=== PATIENT | male | born 1940 | race Caucasian/White ===

== ENCOUNTER 2017-05-29 09:53 | Emergency (ER) | payer OTHER ==
--- NOTE | 2017-05-29 10:11 | EDPHY ---
H & P Stated Complaint: rectal bleeding with constipation Time Seen by Provider: 05/29/17 10:05 - Personal History Current Tetanus/Diphtheria Vaccine: Unsure - Medical/Surgical History Hx Asthma: No Hx Chronic Respiratory Disease: No Hx Diabetes: No Hx Cardiac Disease: Yes Hx Renal Disease: No Hx Cirrhosis: No Hx Alcoholism: No Hx HIV/AIDS: No Hx Splenectomy or Spleen Trauma: No Other PMH: PSH: CABG; cardiac stent;. PMH: CAD; HTN ; L carotid stenosis - Social History Smoking Status: Former smoker Constitutional: Initial Vital Signs Temperature (C) 36.7 C 05/29/17 09:57 Heart Rate 76 05/29/17 09:57 Respiratory Rate 17 05/29/17 09:57 Blood Pressure 155/85 H 05/29/17 09:57 O2 Sat (%) 98 05/29/17 09:57 O2 Delivery Mode Room Air Allergies/Adverse Reactions: Sulfa (Sulfonamide Antibiotics) Allergy (Intermediate, Verified 05/29/17 09:54) hallucinating Home Medications: Medication Instructions Recorded Aspirin [Aspirin 81mg (OTC)] 81 mg PO DAILY 07/02/12 Cholecalciferol Vit D3 [Vitamin D3 1,000 units PO DAILY 07/02/12 1000 units (OTC)] Herbals/Supplements -Info Only 1 tab PO AD 07/02/12 Lisinopril [Zestril 10 mg (RX)] 10 mg PO DAILY 07/02/12 Multivitamins [Multivitamin (OTC)] 1 tab PO DAILY 07/02/12 Red Yeast Rice Extract [Red Yeast 600 mg PO DAILY 07/02/12 Rice] [employer] 6 - 8 tab PO DAILY 07/02/12 Vitamin B Complex [Vitamin B 1 tab PO DAILY 07/02/12 Complex (OTC)] Medical Decision Making - Diagnostics Imaging Results: Imaging Impressions Abdomen CT 05/29/17 10:33 Impression: 1. Constipation and mild diverticulosis of the sigmoid and ascending colon. No acute diverticulitis. 2. No intraabdominal mass, lymphadenopathy, or localized inflammatory process. 3. Normal caliber atherosclerotic aorta. Findings discussed with Emergency Department physician, Bahman Lowe M.D. on May 29, 2017 at 11:18 a.m. Imaging: Discussed imaging studies w/ call center rn Radiologist ED Course/Re-evaluation: CHIEF COMPLAINT: Rectal bleeding. HISTORY OF PRESENT ILLNESS: The patient is a 76-year-old male who presents with rectal bleeding that began at 0300 this morning. He noticed dark crusty blood that came out of his rectum during urination. He does report being a bit constipated the past few days. He has had no other episodes since then. He has no history of similar symptoms. He takes a daily baby aspirin. He denies dizziness, lightheadedness, vomiting, diarrhea, or other complaints at this time. REVIEW OF SYSTEMS: A 10 point review of systems was performed and is negative with the exception of the elements mentioned in the history of present illness. PHYSICAL EXAM: HR, BP, O2 Sat, RR. Temp noted General Appearance: Alert, well hydrated, appropriate, and non-toxic appearing. Head: Atraumatic without scalp tenderness or obvious injury Eyes: Pupils equal, round, reactive to light and accommodation, EOMI, no trauma , no injection. Ears: Clear bilaterally, no perforation, normal landmarks Nose: Atraumatic, no rhinorrhea, clear. Throat: There is no erythema or exudates, no lesions, normal tonsils, mucus membranes moist. Neck: Supple, 2+ carotid upstroke, nontender, no lymphadenopathy. Respiratory: No retractions, no distress, no wheezes, and no accessory muscle use. Lungs are clear to auscultation bilaterally. Cardiovascular: Regular rate and rhythm, no murmurs, rubs, or gallops. Bilateral carotid, radial, dorsalis pedis, and posterior tibial pulses intact. Good capillary refill all extremities. Gastrointestinal: Abdomen is soft, nontender, non-distended, no masses, no rebound, no guarding, no peritoneal signs. Musculoskeletal: Normal active ROM of all extremities, atraumatic. Neurological: Alert, appropriate, and interactive. The patient has normal DTRs and non-focal cranial nerves, motor, sensory, and cerebellar exam. Skin: No rashes, good turgor, no nodules on palpation. Past medical history: CAD, HTN L carotid stenosis Past surgical history: Cardiac stent, CABG. Family history: Non-contributory. Social history: Hindu. DIAGNOSTICS/PROCEDURES/CRITICAL CARE TIME: Study: CT of the abdomen/pelvis. Indication: Rectal bleeding. Results: No acute process. The study was read by the radiologist, Dr. Huston. I viewed the images myself on the PACS system. DIFFERENTIAL DIAGNOSIS: The differential diagnosis for the patient's lower GI bleeding included but was not limited to diverticulosis, tumor, AVM, hemorrhoid, and upper GI Bleed. MEDICAL DECISION MAKIN-year-old male presents after one episode of dark rectal bleeding during urination this morning. He has no associated symptoms at this time. I performed a rectal exam. There is no stool in the vault. An IV was established. We will check basic labwork. I reviewed the patient's laboratory studies. H&H normal. Other studies negative for acute abnormalities. Abdominal CT ordered. 1116: CT results conveyed to me by Dr. Huston, radiology, as negative, small amount of constipation. 1127: Consulted with Dr. Nickerson, GI. He will scope the patient tomorrow morning as an outpatient. - Data Points Laboratory Results: Laboratory Results 05/29/17 10:20 05/29/17 10:20 05/29/17 05/29/17 05/29/17 10:30 10:20 10:20 WBC RBC Hgb POC Hgb 15.0 gm/dL gm/dL (13.7-17.5) Hct POC Hct 44 % % (40-51) MCV MCH MCHC RDW Plt Count MPV Neut % (Auto) Lymph % (Auto) Cambria % (Auto) Eos % (Auto) Baso % (Auto) Nucleat RBC Rel Count Absolute Neuts (auto) Absolute Lymphs (auto) Absolute Monos (auto) Absolute Eos (auto) Absolute Basos (auto) Absolute Nucleated RBC Immature Gran % Immature Gran # PT 13.5 SEC SEC (12.0-15.0) INR 1.04 (0.83-1.16) APTT 29.7 SEC SEC (23.0-38.0) POC Sodium 142 mEq/L mEq/L (134-144) Sodium 144 mEq/L mEq/L (134-144) POC Potassium 4.4 mEq/L mEq/L (3.3-5.0) Potassium 4.7 mEq/L mEq/L (3.5-5.2) POC Chloride 105 mEq/L mEq/L (97-110) Chloride 108 mEq/L mEq/L (97-110) Carbon Dioxide 23 mEq/l mEq/l (22-31) Anion Gap 13 mEq/L mEq/L (8-16) POC BUN 22 mg/dL mg/dL (7-23) BUN 22 mg/dL mg/dL (7-23) Creatinine 1.2 mg/dL mg/dL (0.7-1.3) POC Creatinine 1.2 mg/dL mg/dL (0.7-1.3) Estimated GFR 59 Glucose 71 mg/dL mg/dL (70-100) POC Glucose 89 mg/dL mg/dL (70-100) Calcium 9.5 mg/dL mg/dL (8.5-10.4) 05/29/17 10:20 WBC 6.85 10^3/uL 10^3/uL (3.80-9.50) RBC 4.95 10^6/uL 10^6/uL (4.40-6.38) Hgb 15.0 g/dL g/dL (13.7-17.5) POC Hgb Hct 45.0 % % (40.0-51.0) POC Hct MCV 90.9 fL fL (81.5-99.8) MCH 30.3 pg pg (27.9-34.1) MCHC 33.3 g/dL g/dL (32.4-36.7) RDW 13.5 % % (11.5-15.2) Plt Count 254 10^3/uL 10^3/uL (150-400) MPV 10.1 fL fL (8.7-11.7) Neut % (Auto) 76.1 % H % (39.3-74.2) Lymph % (Auto) 13.3 % L % (15.0-45.0) Cambria % (Auto) 8.0 % % (4.5-13.0) Eos % (Auto) 1.6 % % (0.6-7.6) Baso % (Auto) 0.6 % % (0.3-1.7) Nucleat RBC Rel Count 0.0 % % (0.0-0.2) Absolute Neuts (auto) 5.21 10^3/uL 10^3/uL (1.70-6.50) Absolute Lymphs (auto) 0.91 10^3/uL L 10^3/uL (1.00-3.00) Absolute Monos (auto) 0.55 10^3/uL 10^3/uL (0.30-0.80) Absolute Eos (auto) 0.11 10^3/uL 10^3/uL (0.03-0.40) Absolute Basos (auto) 0.04 10^3/uL 10^3/uL (0.02-0.10) Absolute Nucleated RBC 0.00 10^3/uL 10^3/uL (0-0.01) Immature Gran % 0.4 % % (0.0-1.1) Immature Gran # 0.03 10^3/uL 10^3/uL (0.00-0.10) PT INR APTT POC Sodium Sodium POC Potassium Potassium POC Chloride Chloride Carbon Dioxide Anion Gap POC BUN BUN Creatinine POC Creatinine Estimated GFR Glucose POC Glucose Calcium Point of Care Test Results: 05/29/17 10:30 POC Sodium 142 POC Potassium 4.4 POC Chloride 105 POC BUN 22 POC Creatinine 1.2 POC Glucose 89 Departure - Departure Disposition: Home, Routine, Self-Care Clinical Impression: Rectal bleeding Constipation Qualifiers: Constipation type: unspecified constipation type Qualified Code(s): K59.00 - Constipation, unspecified Condition: Good Instructions: Constipation (ED), Rectal Bleeding (ED) Additional Instructions: Call Dr. Nickerson, gastroenterology, today to set up an appointment for tomorrow morning. He is expecting you. Return to the ED for lightheadedness, dizziness, worsening bleeding, or any other serious worsening of condition. Referrals: See Nickerson MD [Medical Doctor] - As per Instructions Report Scribed for: Bahman Lowe Report Scribed by: Patel Hussein Date of Report: 05/29/17 Time of Report: 10:33
[2017-05-29 10:38] LABS: % IMMATURE GRANULYOCYTES 0.4 % (0.0-1.1); ABSOLUTE IMMATURE GRANULOCYTES 0.03 10^3/uL (0.00-0.10); ADD DIFF? NO; ADD MORPH? NO; ADD SCAN? NO; ATYPICAL LYMPHOCYTE FLAG 0 (0-99); FRAGMENT RBC FLAG 0 (0-99); LEFT SHIFT FLG 0 (0-99); LIPEMIA HEMOLYSIS FLAG 80 (0-99); MEAN CELL HEMOGLOBIN 30.3 pg (27.9-34.1); MEAN CELL HEMOGLOBIN CONCENTR. 33.3 g/dL (32.4-36.7); MEAN CELL VOLUME 90.9 fL (81.5-99.8); MEAN PLATELET VOLUME 10.1 fL (8.7-11.7); PLATELET CLUMPS FLAG 0 (0-99); PLATELET COUNT 254 10^3/uL (150-400); RED BLOOD CELL COUNT 4.95 10^6/uL (4.40-6.38); RED CELL DISTRIBUTION WIDTH 13.5 % (11.5-15.2)
[2017-05-29] MEDS ORDERED: IOPAMIDOL (ISOVUE-300) 100 ML BTL ONE (10:42)
[2017-05-29 10:48] LABS: INR 1.04 (0.83-1.16); PROTIME(PATIENT) 13.5 SEC (12.0-15.0)
[2017-05-29 10:49] LABS: APTT 29.7 SEC (23.0-38.0)
[2017-05-29 10:52] LABS: ANION GAP 13 mEq/L (8-16); CALCIUM 9.5 mg/dL (8.5-10.4); CARBON DIOXIDE 23 mEq/l (22-31); CHLORIDE 108 mEq/L (97-110); CREATININE 1.2 mg/dL (0.7-1.3); GLOMERULAR FILTRATION RATE 59; GLUCOSE 71 mg/dL (70-100); POTASSIUM 4.7 mEq/L (3.5-5.2); SODIUM 144 mEq/L (134-144)
[2017-05-29 11:38] VITALS: BP 151/82; PULSE 76; RESP 16; TEMP 97.7; O2SAT 98
== END 2017-05-29 11:38 | disposition home or self-care (01) ==
DX: K62.5 Hemorrhage of anus and rectum (principal); K59.00 Constipation, unspecified; I25.810 Atherosclerosis of coronary artery bypass graft(s) without angina pectoris; I10 Essential (primary) hypertension; Z87.891 Personal history of nicotine dependence; Z79.82 Long term (current) use of aspirin; Z95.5 Presence of coronary angioplasty implant and graft
CPT/HCPCS: 74177; 99285; Q9967; 82947-QW

== ENCOUNTER → 2018-02-10 | Outpatient (CLI) | payer OTHER | LOC: FIMAGING 09:25 | PROVIDERS: ATTEND Family Medicine | DX: E78.5 Hyperlipidemia, unspecified (principal); I10 Essential (primary) hypertension; R05 Cough ==

== ENCOUNTER 2018-09-14 10:15 | Observation (INO) | payer OTHER ==
[2018-09-10 11:05] LABS: PLATELET COUNT 258 10^3/uL (150-400)
--- NOTE | 2018-09-13 15:53 | GHP ---
DATE OF ADMISSION: 09/14/2018 DATE OF SURGERY: 09/14/2018. HISTORY: Catarino is a 78-year-old male who presents with chronic problems with his right knee. His knee is painful, he has swelling and stiffness, limitations of activities. He has tried previous injecti ons, he has used an greenhouse instructor brace and done exercises. He continues to be an active individual, he i s becoming significantly limited by his knee. His x-ray shows severe osteoarthritis, predominantly m edial compartment, that is bone to bone with bony spurs, subchondral sclerosis and varus malalignment . A right total knee arthroplasty is planned. PAST MEDICAL HISTORY: Remarkable for coronary artery disease, he has been managed by Dr. Kenrick lee. He had a bypass surgery in 1998. He has also had a stent placed in [address] Watkins. He h as been cleared from the cardiac standpoint. He has hypertension. MEDICATIONS: He is using lisinopril 40 mg p.o. daily, and vitamins ALLERGIES: Sulfa. SOCIAL HISTORY: He is a nonsmoker. REVIEW OF SYSTEMS: Positive for his cardiac history as above. PHYSICAL EXAM: GENERAL: Catarino is a well-developed, well-nourished male in no apparent distress. HEAD AND NECK: Normocephalic, atraumatic. CHEST: Clear. CARDIOVASCULAR: Regular rate and rhythm. ABD OMEN: Soft. NEUROLOGICAL: He is alert and orient x3. EXTREMITIES: Examination of the right knee s hows varus malalignment, a trace effusion. He has about a 5 degree flexion contracture and flexes to 120 degrees. NEUROVASCULAR: Appears intact. SKIN: Intact. IMPRESSION: Right knee osteoarthritis. PLAN: Right total knee arthroplasty. Benefits and risks of surgery have been reviewed. He understa nds that the risks include infection, damage to blood vessel or nerve, failure or loosening of the co mponent, and need for revision. He has signed his consent form and he wishes to proceed. /[id number]/MODL
[~2018-09-14 10:15] MED LIST: ROPIVACAINE 0.2% 80 MG, EPINEPHrine 0.2 MG, KETOROLAC TROMETHAMINE 30 MG in SYRINGE 0 ML IU ONE; TRANEXAMIC ACID 1,000 MG in NS 100 ML IV ONE
[2018-09-14] MEDS ORDERED: FAMOTIDINE 20 MG TAB PO ONE (10:28)
[2018-09-14] MEDS ORDERED: DEXAMETHASONE 4 MG/ML VIAL IVP ONE (10:28)
[2018-09-14] MEDS ORDERED: ceFAZolin 2 GM/DEXTROSE 100 ML IV ONE (10:28)
[2018-09-14] MEDS ORDERED: GABAPENTIN 300 MG CAP PO ONE (10:28)
[2018-09-14] MEDS ORDERED: ACETAMINOPHEN 325 MG TAB PO ONE (10:28)
[2018-09-14] MEDS ORDERED: ONDANSETRON 4 MG/2 ML VIAL IVP ONE (10:28)
[2018-09-14] MEDS ORDERED: LIDOCAINE 1% 2 ML INJ ID PRN (10:31)
[2018-09-14] MEDS ORDERED: LR 1,000 ML IV ONE (10:31)
[2018-09-14] MEDS ORDERED: ceFAZolin 1 GM/5 ML SYR ONE (10:43)
[2018-09-14] MEDS ORDERED: fentaNYL 100 MCG/2 ML INJ ONE ×2 (12:56→15:54)
[2018-09-14] MEDS ORDERED: LIDOCAINE 2% 100 MG/5 ML SYR ONE (12:56)
[2018-09-14] MEDS ORDERED: PROPOFOL/EMULSION 500 MG/50 ML BOTTLE IV ONE (12:56)
[2018-09-14] MEDS ORDERED: PROPOFOL 200 MG/20 ML VIAL ONE (12:56)
[2018-09-14] MEDS ORDERED: BUPIVACAINE/DEXTROSE 7.5MG/ML 2 ML SPINAL AMP SP ONE (12:56)
--- NOTE | 2018-09-14 13:32 | PDHPUP ---
History & Physical Update H&P update statement: This history and physical update is based on an assessment of the patient which was completed after admission or registration (within 24 hours), but prior to the surgery/procedure. no change H&P update: changes noted (no change)
--- NOTE | 2018-09-14 13:36 | POSTANESTH ---
Post Anesthetic Evaluation Cardiovascular Status: Similar to Pre-Op Cond, Tx Hyper/Hypo-tension Respiratory Status: Normal, Stable Level of Consciousness/Mental Status: Can Participate in Eval, Alert and Oriented Pain Control: Adequate, Prn Tx Ordered Nausea/Vomiting Control: Adequate, Prn Tx Ordered Complications Possibly Related to Anesthesia: None Noted
--- NOTE | 2018-09-14 13:38 | PDANEPAE ---
ANE History of Present Illness 78 yo male with knee OA for TKA. ANE Past Medical History - Cardiovascular History Hx Hypertension: Yes Hx Arrhythmias: No Hx Chest Pain: No Hx Coronary Artery / Peripheral Vascular Disease: Yes Hx CHF / Valvular Disease: No Hx Palpitations: No Cardiovascular History Comment: s/p 4 v CABG 20 yrs ago, stent 18 yr ago - Pulmonary History Hx COPD: No Hx Asthma/Reactive Airway Disease: No Hx Recent Upper Respiratory Infection: No Hx Oxygen in Use at Home: No Hx Sleep Apnea: No Sleep Apnea Screening Result - Last Documented: Positive Pulmonary History Comment: SATNAM triggers only - Neurologic History Hx Cerebrovascular Accident: No Hx Seizures: No Hx Dementia: No - Endocrine History Hx Diabetes: No Hypothyroid: No Hyperthyroid: No Obesity: no - Renal History Hx Renal Disorders: No - Liver History Hx Hepatic Disorders: No - Neurological & Psychiatric Hx Hx Neurological and Psychiatric Disorders: No - Cancer History Hx Cancer: No - Congenital Disorder History Hx Congenital Disorders: No - GI History Hx Gastrointestinal Disorders: No Gastrointestinal History Comment: polyp removal - Other Health History Other Health History: bilateral hearing aids. upper denture, lower partial. bialteral rotator cuff pain - Chronic Pain History Chronic Pain: Yes (bilateral rotator cuffs) - Surgical History Prior Surgeries: CABG, 1998. 2 stents, 2000 ANE Review of Systems Review of Systems: - Exercise capacity METS (RN): 4 METS - Systems Constitutional: Reports: no symptoms Cardiac: Reports: no symptoms Respiratory: Reports: no symptoms ANE Patient History - Allergies Allergies/Adverse Reactions: Sulfa (Sulfonamide Antibiotics) Allergy (Verified 09/09/18 12:36) can't recall reaction but thinks it was itching - Home Medications Home Medications: Lisinopril [Zestril 10 mg (RX)] 40 mg PO HS 07/02/12 [Last Taken 09/13/18 21:00] - NPO status NPO Since - Liquids (Date): 09/14/18 NPO Since - Liquids (Time): 08:45 NPO Since - Solids (Date): 09/13/18 NPO Since - Solids (Time): 20:00 - Anes Hx Anes Hx: no prior problems - Smoking Hx Smoking Status: Former smoker - Family Anes Hx Family Anes Hx: neg - N/A Family Hx Anesthesia Complications: none ANE Labs/Vital Signs - Labs Result Diagrams: 09/10/18 10:41 - Vital Signs Blood Pressure: 194/90 Heart Rate: 76 Respiratory Rate: 15 O2 Sat (%): 97 Height: 180.34 cm Weight: 72.575 kg ANE Physical Exam - Airway Neck exam: FROM Mallampati Score: Class 2 Mouth exam: normal dental/mouth exam - Pulmonary Pulmonary: clear to auscultation - Cardiovascular Cardiovascular: regular rate and rhythym - ASA Status ASA Status: II ANE Anesthesia Plan Anesthesia Plan: spinal Regional Anesthesia: adductor canal FNB, POPC/PSR
[2018-09-14] MEDS ORDERED: LIDOCAINE 2% 5 ML SDV ONE (13:43)
[2018-09-14] MEDS ORDERED: DEXAMETHASONE 4 MG/ML VIAL ONE (14:58)
[2018-09-14] MEDS ORDERED: ROPIVACAINE HCL 150 MG/30 ML INJ ONE (15:10)
[2018-09-14] MEDS ORDERED: POVIDONE-IODINE 20 ML in SODIUM CL IRRIG SOLUTION 500 ML IRR ONE (15:30)
[2018-09-14] MEDS ORDERED: LR 500 ML IV PRN (15:34)
[2018-09-14] MEDS ORDERED: DIAZEPAM 5 MG/ML 1 ML SYR IVP PRN (15:34)
[2018-09-14] MEDS ORDERED: NALOXONE HCL 0.4 MG/ML INJ IVP PRN (15:34)
[2018-09-14] MEDS ORDERED: ENALAPRILAT DIHYDRATE 1.25 MG/ML VIAL IVP PRN (15:34)
[2018-09-14] MEDS ORDERED: oxyCODONE IR 5 MG TAB PO PRN ×2 (15:34→15:50)
[2018-09-14] MEDS ORDERED: ONDANSETRON 4 MG/2 ML VIAL IVP PRN ×2 (15:34→15:50)
[2018-09-14] MEDS ORDERED: ALBUTEROL 3 ML DEYVIAL IH PRN (15:34)
[2018-09-14] MEDS ORDERED: ACETAMINOPHEN 500 MG TAB PO PRN (15:34)
[2018-09-14] MEDS ORDERED: LABETALOL HCL 5 MG/ML 20 ML MDV ONE (15:39)
[2018-09-14] MEDS ORDERED: METOCLOPRAMIDE 10 MG/2 ML VIAL IVP PRN (15:50)
[2018-09-14] MEDS ORDERED: TEMAZEPAM 15 MG CAP PO PRN (15:50)
[2018-09-14] MEDS ORDERED: MAGNESIUM HYDROXIDE 30 ML UDCUP PO PRN (15:50)
[2018-09-14] MEDS ORDERED: DIPHENOXYLATE/ATROPINE LOMOTIL 1 TAB PO PRN (15:50)
[2018-09-14] MEDS ORDERED: BISACODYL 10 MG SUPP PR PRN (15:50)
[2018-09-14] MEDS ORDERED: diphenhydrAMINE 25 MG CAP PO PRN (15:50)
[2018-09-14] MEDS ORDERED: PROMETHAZINE HCL 25 MG SUPPR PR PRN (15:50)
[2018-09-14] MEDS ORDERED: LACTULOSE 20 GM/30 ML UDCUP PO PRN (15:50)
[2018-09-14] MEDS ORDERED: PROMETHAZINE HCL 25 MG/ML INJ IVP PRN (15:50)
[2018-09-14] MEDS ORDERED: POLYETHYLENE GLYCOL 3350 17 GM PKT PO PRN (15:50)
[2018-09-14] MEDS ORDERED: CYCLOBENZAPRINE 10 MG TAB PO PRN (15:50)
[2018-09-14] MEDS ORDERED: ONDANSETRON DISINTEGRATING 4 MG TAB PO PRN (15:50)
[2018-09-14] MEDS: fentaNYL 100 MCG/2 ML INJ IVP PRN ×2 (15:59→16:10)
[2018-09-14] MEDS ORDERED: LR 1,000 ML IV SCH (16:00)
[2018-09-14] MEDS ORDERED: TRANEXAMIC ACID 1,000 MG in NS 100 ML IV ONE (16:23)
--- NOTE | 2018-09-14 16:29 | GOP ---
DATE OF OPERATION: 09/14/2018 SURGEON: Dionisio Crews MD CORE WINDER MACHINE OPERATOR: ALEXANDER Muse, MORIS ANESTHESIOLOGIST: JOSH Ny PREOPERATIVE DIAGNOSIS: Right knee osteoarthritis. POSTOPERATIVE DIAGNOSIS: Right knee osteoarthritis. PROCEDURE PERFORMED: Right total knee arthroplasty. FINDINGS: SPECIMENS: Include excised bone. ESTIMATED BLOOD LOSS: Minimal. INDICATIONS: The patient is a 78-year-old male who presents with history, exam, and x-rays consisten t with severe tricompartment right knee osteoarthritis, [id number] medial compartment, and varus ma lalignment. DESCRIPTION OF PROCEDURE: The patient was taken to the operating room, received a spinal block by Dr Chelsey Lew. He then received preoperative antibiotics, as well as tranexamic acid. He was placed sup ine, roll towel beneath the right hip to neutralize his rotation, tourniquet fit high on the right th igh, and the right leg was prepped and draped free in the usual fashion with chlorhexidine. The limb was elevated, exsanguinated, and the tourniquet inflated 300 mmHg. I made a longitudinal incision in the midline. I used a medial parapatellar arthrotomy and inverted the patella. I measured its thickness at 26 mm. I removed 9 mm of cartilage and bone, and the tejada la was sized at a 38. I drilled peg holes. The trial component restored the thickness of the patell a and rimming osteophytes were trimmed back. The patella was inverted. The knee was flexed. I dril led a aircraft pilot hole in the distal femur, used an intramedullary guide in the femur, and because of the f lexion contracture, used a +2 cut. I used 5 degree valgus alignment. I sized the femur between a 7 and 8, and downsized to a 7, moved the component a bit anterior. I completed the anterior, posterior camphor cuts, as well as the notch cuts. The component fit well. I used an extramedullary guide on the tibia. I adjusted rotation, posterior slope, and appropriate d epth of cut, and made a perpendicular cut, and I sized the surface at size 6. I finished dialing in the rotation and then made a drill hole and cruciate punch to set the rotation. All the components w ere then removed. All the surfaces jet lavaged with antibiotic saline. I cemented all 3 components, size 7 on the femur, size 6 on the tibia, and a 38 mm patellar component. I then did trial reductio ns. I found that a 12 mm insert allowed full extension, excellent rollback in flexion, and appropria te stability. His alignment looked fine, and rotation was appropriate as well, and the patella track ed centrally. The size 12 tray was snapped into place. The tourniquet was let down after about an hour and 10 minutes. I used Betadine and saline irrigatio n. The arthrotomy was closed with interrupted [id number] sutures of 0 Mersilene, subcutaneous t issue was closed with 2-0 Monocryl, and the skin with mili. The wound was dressed with Betadine-s oaked Adaptic, 4 x 4, sterile Webril, and a long-leg MANOHAR stocking was applied. COMPLICATIONS: There were no complications. DRAINS: No drains. COUNTS: All counts were correct. The patient was taken in stable condition to recovery. My biology laboratory assistant was a medical necessity to accomplish this knee replacement. SUMMARY OF COMPONENTS: This is a [employer] bi-cruciate stabilized knee. The femur is Oxinium surfaced and the plastic liner is cross-linked polyethylene. The components are femur size 7, tibia size 6, patella 38, and the articular insert 12 mm thick. /[id number]/MODL
[2018-09-14] MEDS: KETOROLAC 15 MG/1 ML SDV IVP SCH (18:21)
[2018-09-14] MEDS: ACETAMINOPHEN 325 MG TAB PO SCH (18:24)
[2018-09-14] MEDS: SENNOSIDES/DOCUSATE SODIUM TAB PO SCH (20:31)
[2018-09-14] MEDS: FAMOTIDINE 20 MG TAB PO SCH (20:31)
[2018-09-14] MEDS: ASPIRIN 81 MG CHEWABLE TAB PO SCH (20:32)
[2018-09-14] MEDS ORDERED: LISINOPRIL 10 MG TAB PO SCH (21:00)
[2018-09-14] MEDS: ceFAZolin 2 GM/DEXTROSE 100 ML IV SCH (21:41)
[2018-09-15] MEDS: ACETAMINOPHEN 325 MG TAB PO SCH ×3 (00:35→12:32)
[2018-09-15] MEDS: KETOROLAC 15 MG/1 ML SDV IVP SCH ×3 (00:38→12:33)
[2018-09-15] MEDS: ceFAZolin 2 GM/DEXTROSE 100 ML IV SCH (05:14)
[2018-09-15] MEDS: SENNOSIDES/DOCUSATE SODIUM TAB PO SCH (08:07)
[2018-09-15] MEDS: ASPIRIN 81 MG CHEWABLE TAB PO SCH (08:07)
[2018-09-15] MEDS: FAMOTIDINE 20 MG TAB PO SCH (08:07)
--- NOTE | 2018-09-15 08:35 | SOAPPROG ---
SOAP Progress Note Assessment/Plan: Assessment: 09/15/18 POD#1 R TKA, pain controlled, required straight cath x2, Hct 32 xray fine Plan: 09/15/18 08:32 PT/OT, meds will be tyl, nsaid, oxy, out pt PT, possible Urology consult Objective: Vital Signs Temp Pulse Resp BP Pulse Ox 36.4 C 68 14 138/68 H 94 09/15/18 07:37 09/15/18 07:37 09/15/18 07:37 09/15/18 07:37 09/15/18 07:37 Laboratory Results 09/15/18 05:00 09/14/18 09/15/18 09/16/18 05:59 05:59 05:59 Intake Total 0 Output Total 1200 Balance 860 ICD10 Worksheet Patient Problems: Problems Problem Status Onset Osteoarthritis of right knee Acute - ICD10 Problem Qualifiers (1) Osteoarthritis of right knee
[2018-09-15 11:31] VITALS: BP 128/56
--- NOTE | 2018-09-15 12:03 | SOAPPROG ---
SOAP Progress Note Assessment/Plan: Assessment: 09/15/18 POD#1 R TKA, pain controlled, required straight cath x2, Hct 32 xray fine 09/15/18, able to urinate Plan: 09/15/18 08:32 PT/OT, meds will be tyl, nsaid, oxy, out pt PT, possible Urology consult 09/15/18 12:02 ok for D?C Objective: Vital Signs Temp Pulse Resp BP Pulse Ox 36.6 C 51 L 14 128/56 H 93 09/15/18 11:31 09/15/18 11:31 09/15/18 11:31 09/15/18 11:31 09/15/18 11:31 Laboratory Results 09/15/18 05:00 09/14/18 09/15/18 09/16/18 05:59 05:59 05:59 Intake Total 0 Output Total 1200 225 Balance 860 -225 ICD10 Worksheet Patient Problems: Problems Problem Status Onset Osteoarthritis of right knee Acute - ICD10 Problem Qualifiers (1) Osteoarthritis of right knee
--- NOTE | 2018-09-15 13:56 | ASMTLACE ---
LACE Length of stay for Answers: 2 days current admission Acuity / Level of Answers: No Care: Did the patient have an inpatient admission? Comorbidities - select Answers: Coronary Artery Disease all that apply Opioid dependence / Chronic pain Other Notes: HTN # of Emergency department Answers: 0 visits in the last 6 months Score: 9 Date Signed: 09/15/2018 01:55 PM Electronically Signed By:RA Black
--- NOTE | 2018-09-15 13:58 | ASMTCMCOM ---
CM Note CM Note Notes: Pt had planned OA of knee. PT/OT rec C, rec outpatient PT. Spoke with pt who is understanding and in agreement with MD aldana, he will have outpatient PT at [facility] where he has been before. No CM d/c needs identified. Date Signed: 09/15/2018 01:57 PM Electronically Signed By:RA Black
== END 2018-09-15 13:37 | disposition home or self-care (01) ==
LOC: F3N 10:15 → EDSTATUS 12:15 → F3N 17:04
PROVIDERS: ADMIT Orthopaedic Surgery; ATTEND Orthopaedic Surgery
PROC: 0SRC0JZ Replacement of Right Knee Joint with Synthetic Substitute, Open Approach (ICD-10-PCS; principal; 2018-09-14 12:15)
DX: M17.11 Unilateral primary osteoarthritis, right knee (principal); I25.10 Atherosclerotic heart disease of native coronary artery without angina pectoris; I10 Essential (primary) hypertension; F41.9 Anxiety disorder, unspecified; Z95.828 Presence of other vascular implants and grafts
CPT/HCPCS: 27447; 73560; 88311; 97110; 97116; 97161; 97165; 97535; C1713; C1776; G0378; G8978; G8979; G8980; G8987; G8988; G8989; J0171; J0690; J1100; J1885; J2405; J2704; J2795; J3010; J2001

== ENCOUNTER → 2018-10-08 | Outpatient (CLI) | payer OTHER | LOC: FIMAGING 14:41 | PROVIDERS: ATTEND Orthopaedic Surgery | DX: M79.661 Pain in right lower leg (principal); G89.18 Other acute postprocedural pain ==

== ENCOUNTER 2018-12-17 11:44 | Observation (INO) | payer OTHER ==
[2018-12-17] MEDS ORDERED: ASPIRIN EC 325 MG TAB PO ONE (11:47)
[2018-12-17] MEDS ORDERED: NS 1,000 ML IV ONE (11:47)
[2018-12-17] MEDS ORDERED: diphenhydrAMINE 25 MG CAP PO ONE (11:47)
[2018-12-17] MEDS ORDERED: DIAZEPAM 5 MG TAB PO ONE (11:47)
[2018-12-17] MEDS ORDERED: FAMOTIDINE 20 MG TAB PO ONE (11:47)
[2018-12-17 12:30] LABS: PLATELET COUNT 263 10^3/uL (150-400)
[2018-12-17 12:39] LABS: INR 1.08 (0.83-1.16); PROTIME(PATIENT) 14.2 SEC (12.0-15.0)
--- NOTE | 2018-12-17 13:12 | PDHPUP ---
History & Physical Update H&P update statement: This history and physical update is based on an assessment of the patient which was completed after admission or registration (within 24 hours), but prior to the surgery/procedure. H&P update: H&P reviewed & patient examined, no change in patient's condition since H&P completed
--- NOTE | 2018-12-17 13:12 | PDPROPOC ---
Sedation Plan of Care Sedation Plan of Care: vital signs stable, mental status noted, patient educated of risks, benefits, alternatives, patient can tolerate sedation ASA Classification: ASA 3 Planned drugs: fentanyl, midazolam Mallampati Score: Class 2 Mallampati Reference Image: Patient passed 3-3-2 rule?: Yes
[2018-12-17] MEDS ORDERED: LIDOCAINE 1% 300 MG/30 ML SDV ONE (13:53)
[2018-12-17] MEDS ORDERED: fentaNYL 100 MCG/2 ML INJ ONE ×2 (13:53→15:07)
[2018-12-17] MEDS ORDERED: IOPAMIDOL (ISOVUE-370) 150 ML BTL IV ONE (13:54)
[2018-12-17] MEDS ORDERED: MIDAZOLAM 2 MG/2 ML VIAL ONE ×3 (13:54→15:07)
--- NOTE | 2018-12-17 14:47 | PDDXCAT ---
Diagnostic Cath Note - . Date: 12/18/18 Inside Contractor Sales: Jeimy Indication: other (intermediate risk stress test ) - Procedure Access: right groin Procedure: left heart catheterization, coronary angiography, left ventriculogram - Materials Left Heart Cath size: 6F Left Heart Cath materials: JL4.0, JR4.0, pigtail - Findings-Left Heart Catheterization LM: The left main is 7mm in size and trifurcates into a LAD, circumflex and Ramus intermedius system. THe vessel is perfusely diseased distally. LAD: The left anterior descending arises in its usual location. There is a 90% ostial obstruction of the LAD. After the first diagonal takeoff the vessel is totally occluded. LCX: The left circumflex is mm in size and codominant. There is a 50% stenosis in the ostial left circumflex. RCA: The right coronary artery is 2mm in size and codominant. The vessel is comletely occluded after the RV branch diffusely diseased. Ramus: The Ramus is a small vessel. There is a 90% obstruction of the Ramus intermedius. rSVG: The SVG to the right diagonal are totally occluded. EDP: 19mmHg LVEF: 25% Wall motion: On the LV gram there is severely reduced LV systolic function. The EF is 30%. There are severe moderatley severe anterior anteroapical and distal wall hypokinesis and basil inferior akinesis. 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 There is 3 to 4+ mitral regurgitation. The aorta appears to be the upper limits of normal in size. - Findings-Right Heart Catheterization AO: 153/82/114 Complications: NONE Estimated blood loss: <50ml Closure method: manual pressure Assessment: The patient has what appears to be an ischemic cardiomyopathy with severe nikolski vessel and graft coronary disease. There is evidence of prior 4 vessel CABG and prior stent implantation of the ostium of a SVG to the diagonal circulation. There is a 90% obstruction to the ostial LAD and the vessel is completely occluded after the first diagonal takeoff. The right coronary system is codominant and completely occluded after the RV branch. There is also significant and obstructive disease of the Ramus Intermedius branch with a 90% ostial obstruction. The SVG to the RCA, Ramus and Diagonal vessel are all occluded. During left heart cath the patient experienced intermittent heart block related to catheter placement. Plan: The patient has significant and diffuse nikolski vessel coronary disease. The patient has a history of previous CABG and stent implantation. I think the patient should be admitted to watch the cardiac rhythm and for an echo to evaluate the severity of aortic and mitral regurgitation, ejection fraction the size of the thoracic aorta. The patient will need a Rest Rest redistribution Thallium study to determine viability of the myocardium. I would like to present his case at the cardiac cath conference after this data is made available. Intervention: NONE Patient Problems: Problems Problem Status Onset Osteoarthritis of right knee Acute
--- NOTE | 2018-12-17 14:59 | CPEKG ---
Test Reason : OPEN Blood Pressure : / mmHG Vent. 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
[2018-12-17] MEDS ORDERED: OXYCODONE/APAP 5/325 TAB PO PRN (15:20)
[2018-12-17] MEDS ORDERED: NITROGLYCERIN 0.4 MG BTL SL PRN (15:20)
[2018-12-17] MEDS ORDERED: ONDANSETRON 4 MG/2 ML VIAL IVP PRN (15:20)
[2018-12-17] MEDS ORDERED: HYDROCODONE/APAP 5/325 TAB PO PRN (15:20)
[2018-12-17] MEDS ORDERED: ATROPINE SULFATE 1 MG/10 ML SYR IVP PRN (15:20)
[2018-12-17] MEDS ORDERED: ATROPINE SULFATE 1 MG/10 ML SYR ONE (15:38)
[2018-12-17] MEDS ORDERED: ACETAMINOPHEN 325 MG TAB PO PRN (16:18)
[2018-12-17] MEDS ORDERED: LISINOPRIL 40 MG TAB PO SCH (21:00)
[2018-12-18] MEDS ORDERED: ASPIRIN EC 81 MG TAB PO SCH (09:00)
[2018-12-18] MEDS ORDERED: PERFLUTREN LIPID MICROSPHERES 1.1 MG/ML VIAL IV ONE (10:00)
[2018-12-18 11:37] VITALS: BP 133/75
--- NOTE | 2018-12-18 18:45 | GDS ---
[f rep st] DISCHARGE SUMMARY SUPERVISING RESIDENTIAL PLUMBER: Aaron Munson MD. ADMISSION DIAGNOSES: 1. Coronary artery disease, with remote percutaneous coronary intervention. 2. Chest pain. 3. Abnormal EKG with known history of right bundle branch block, with new anterior fascicular block and ST depression in lateral leads. 4. Hypertension. 5. Hyperlipidemia. DISCHARGE DIAGNOSES: 1. Coronary artery disease with recent cardiac catheterization showing occlusion of all saphenous ve in grafts, patent left internal mammary artery to the left anterior descending. 2. Hypertension. 3. Hyperlipidemia. 4. Abnormal EKG with right bundle branch block, with new anterior fascicular block. 5. Ischemic cardiomyopathy with ejection fraction of 30% to 35%. 6. Moderate to severe mitral regurgitation. 7. Moderate aortic insufficiency. PROCEDURES PERFORMED DURING HOSPITALIZATION: 1. Electrocardiogram. 2. Diagnostic left heart catheterization with graft. 3. Transthoracic echocardiogram. BRIEF HISTORY: Please see H and P. Briefly, the patient is a 78-year-old male with known history of CAD with previous CABG and PCI, hypertension and hyperlipidemia. Recently seen his PCP after having episodes of chest pressure. He had an EKG, which he was noted to have a right bundle branch block, but new anterior fascicular block was noted with T-wave inversion in lateral leads, suggestive of isc hemia. He was seen in our office following his appointment the same day. With his reported symptoms of chest pressure, known history of coronary artery disease and new EKG changes, it was recommended that he be evaluated for possible ischemia by undergoing coronary angiogram. HOSPITAL COURSE: On December 17, the patient was admitted to the CVC, prepped for procedure and take n to the cardiac catheterization lab. There, he underwent diagnostic left heart catheterization with grafts by Dr. Munson. Findings were noted that all his saphenous vein grafts were occluded, he was noted to have a patent BOB to the LAD, and he was noted to have a 90% obstructed ostial LAD and comp letely occluded after the first diagonal takeoff. Right coronary artery system was dominant. He was noted to have a ramus intermediate branch that had a 90% ostial disease. An LV-gram was done. It w as noted that the patient's EF was 30% with severely reduced LV systolic function, with noted severe anterior, apical and distal wall hypokinesis and basal inferior akinesis. He was also noted to have 3 to 4+ mitral regurgitation. Also noted during his LV-gram, he did have a brief episode of second-d egree heart block type 2, with the pigtail catheter in the left ventricle. He was asymptomatic and r emained stable. As soon as the catheter was removed, he returned back to sinus rhythm. The patient was transferred back to the CVC for recovery, then transferred him to the PCU for overnight observati on. There, he has remained chest-pain free, he has been up and walking in the unit without any diffi culties. Continuous cardiac monitoring showing sinus rhythm with no malignant arrhythmias, pauses. No further episodes of AV block. The patient and Dr. Munson had a significant discussion about [facility] management of his heart disease, including repeating bypass surgery with valvular heart disease re pair, versus percutaneous coronary artery intervention, but with his wall motion abnormalities, there is some question about potential viability of his cardiac muscle. At this time, the patient will be planned to be discharged home with plans of undergoing a viability study at our [place] office early next week, and with the results of this, he will be presented to our groups' case conference with CT Surgery for evaluation and to see further recommendation from the group. Until then, he will contin ue on med management. PHYSICAL EXAMINATION: GENERAL APPEARANCE: Tall, well-groomed male. He is alert and orien cesar to person, place, time and situation. Appears to be under no acute distress. VITAL SIGNS: [facility] vital signs are a blood pressure of 133/75, heart rate of 888, sinus rhythm on the monitor, respir ations 19, saturation 96% on room air, temperature of 36.7 degrees Celsius. HEENT: Head is normocep halic. Lips and tongue are pink and moist with no signs of cyanosis. Conjunctivae are pink. NECK: Trachea is midline, +2 carotid pulses bilateral. No auscultated bruits. No jugular vein distention . RESPIRATORY: Lungs are clear to auscultation. No rhonchi, rales or wheezes. No accessory muscle use. No intercostal muscle retraction noted. CARDIAC: Regular rate, regular rhythm, S1, S2. No S 3, S4 noted. A 2/6 systolic murmur noted along the left sternal border. ABDOMEN: Soft, nontender, bowel sounds x4 quadrants. No organomegaly. No palpable masses. SKIN: [place], warm, dry. No cyanos is. No clubbing. No peripheral edema. VASCULAR: +2 carotids bilaterally, +2 radials bilaterally, +1 dorsal pedal and posterior tibial pulses bilaterally. CATHETER INSERTION SITE: Right groin site with no redness, swelling, drainage, ecchymosis, or hematoma. No auscultated bruit noted over the si te. LABORATORY: Laboratory studies drawn on day of admission, showed WBC of 6.27, hemoglobin 11.9, hemat ocrit 37.1, platelet count 263. INR 1.08. Sodium 137, potassium 5.0, chloride 110, CO2 19, BUN 30, creatinine 1.4, glucose 83, calcium 9.3, magnesium 2.0, triglycerides 72, total cholesterol 157, LDL 98, HDL 45. STUDIES: Electrocardiogram done on admission showing sinus rhythm with right bundle branch block, le ft anterior fascicular block (bifascicular block). Discharge cardiac catheterization as mentioned ab ove. Preliminary from echocardiogram done this morning showing mildly dilated LV. No LVH. Moderate ly reduced LV systolic function with EF estimated between 30% and 35%. No LV apical thrombus. Grade 2 diastolic dysfunction. Anterolateral and inferolateral hypokinesis. RV was mildly dilated with l ow-normal RV function. LA is mildly dilated. RA is mildly dilated. Inwislbw-ow-thnhow eccentric MR . Moderate AI, moderate TR, mild TR. DISCHARGE DISPOSITION: The patient will be discharged to home in fair condition. He is under activi ty restrictions of performing no strenuous activity until viability study is completed and he has ret urned to our office. DISCHARGE MEDICATIONS: Please see discharge medication reconciliation sheet. Note that patient has been discharged home on antiplatelet therapy of aspirin 81 mg p.o. daily. He will continue on curren t dose of lisinopril 20 mg p.o. twice daily. He has not been started on beta-ashely due to bifascic ular block and noted episode of second-degree heart block type 2 during cardiac catheterization with catheter in the LV at this time. DISCHARGE INSTRUCTIONS: Post left heart catheterization discharge instructions, went over with the p atient including monitoring for signs of infection, bleeding precautions and activity restrictions. The patient has been scheduled at our [place] office to undergo a myocardial viability study. He has a followup appointment with his primary sketch maker, Dr. Watkins scheduled for December 28, in which o n the morning of, he will be presented to the groups' case conference review board. At the time of d ischarge, the patient verbalizes understanding of all instructions and has no questions or concerns. He has been told that if any problems or concerns come up post discharge, he is to notify our office or return to the hospital. Total time spent on discharge, greater than 30 minutes. /[id number]/MODL
== END 2018-12-18 15:29 | disposition home or self-care (01) ==
LOC: FCATH 11:44 → F2W 15:20
PROVIDERS: ADMIT Internal Medicine Cardiovascular Disease; ATTEND Internal Medicine Cardiovascular Disease
DX: I25.119 Atherosclerotic heart disease of native coronary artery with unspecified angina pectoris (principal); R94.30 Abnormal result of cardiovascular function study, unspecified; I34.0 Nonrheumatic mitral (valve) insufficiency; I10 Essential (primary) hypertension; E78.5 Hyperlipidemia, unspecified; K21.9 Gastro-esophageal reflux disease without esophagitis; K44.9 Diaphragmatic hernia without obstruction or gangrene; Z95.5 Presence of coronary angioplasty implant and graft; Z95.1 Presence of aortocoronary bypass graft; Z96.651 Presence of right artificial knee joint
CPT/HCPCS: 93005; 93459; G0378; J1644; J2250; J3010; Q9957; Q9967; J0461

== ENCOUNTER → 2019-01-05 | Day surgery (SDC) | payer OTHER ==
[~2019-01-05] MED LIST changes: +ASPIRIN EC 325 MG TAB PO ONE; +DIAZEPAM 5 MG TAB ONE; +DIAZEPAM 5 MG TAB PO ONE; +FAMOTIDINE 20 MG TAB ONE; +FAMOTIDINE 20 MG TAB PO ONE; +IOPAMIDOL (ISOVUE-370) 150 ML BTL IV ONE; +LIDOCAINE 1% 300 MG/30 ML SDV ONE; +MIDAZOLAM 2 MG/2 ML VIAL ONE; +NS 1,000 ML IV ONE; +ONDANSETRON 4 MG/2 ML VIAL IVP PRN; -ROPIVACAINE 0.2% 80 MG, EPINEPHrine 0.2 MG, KETOROLAC TROMETHAMINE 30 MG in SYRINGE 0 ML IU ONE; -TRANEXAMIC ACID 1,000 MG in NS 100 ML IV ONE; +diphenhydrAMINE 25 MG CAP PO ONE; +fentaNYL 100 MCG/2 ML INJ ONE
--- NOTE | 2019-01-05 09:59 | PDPROPOC ---
Sedation Plan of Care Sedation Plan of Care: vital signs stable, mental status noted, patient educated of risks, benefits, alternatives, patient can tolerate sedation ASA Classification: ASA 2 Planned drugs: fentanyl, midazolam Mallampati Score: Class 1 Mallampati Reference Image: Patient passed 3-3-2 rule?: Yes
[2019-01-05 10:08] LABS: PLATELET COUNT 255 10^3/uL (150-400)
[2019-01-05 10:23] LABS: INR 1.07 (0.83-1.16); PROTIME(PATIENT) 13.5 SEC (12.0-15.0)
--- NOTE | 2019-01-05 11:21 | PDDXCAT ---
Diagnostic Cath Note - . Date: 01/05/19 Warehouse Selector: Roland Indication: CCC Class III and IV angina on medical treatment - Procedure Access: left groin Procedure: left heart catheterization, LUIS injection - Materials Left Heart Cath materials: JR4.0 - Findings-Left Heart Catheterization LUIS: Patent to distal RCA. Complications: none Estimated blood loss: <50ml Closure method: manual pressure Assessment: Patent LUIS to the distal RCA. Patient Problems: Problems Problem Status Onset Osteoarthritis of right knee Acute
--- NOTE | 2019-01-08 18:59 | CPEKG ---
Test Reason : OPEN Blood Pressure : / mmHG Vent. Rate : 086 BPM Atrial Rate : 086 BPM P-R Int : 165 ms QRS Dur : 159 ms QT Int : 406 ms P-R-T Axes : 088 -68 082 degrees QTc Int : 486 ms Sinus rhythm Probable left atrial enlargement RBBB and LAFB Abnormal T, consider ischemia, lateral leads Confirmed by Aaron Munson [id number] on 01/08/2019 6:58:57 PM Referred By: BRITNI NOVA Confirmed By:Aaron Munson
== END | disposition home or self-care (01) ==
LOC: FCATH 09:20
PROVIDERS: ATTEND Internal Medicine Interventional Cardiology
DX: I25.119 Atherosclerotic heart disease of native coronary artery with unspecified angina pectoris (principal); I25.5 Ischemic cardiomyopathy; I34.0 Nonrheumatic mitral (valve) insufficiency; I35.0 Nonrheumatic aortic (valve) stenosis; Z95.1 Presence of aortocoronary bypass graft; I10 Essential (primary) hypertension; K21.9 Gastro-esophageal reflux disease without esophagitis; E78.5 Hyperlipidemia, unspecified; Z95.5 Presence of coronary angioplasty implant and graft
CPT/HCPCS: J1644; J2250; J3010; Q9967

== ENCOUNTER 2019-01-07 05:31 | Inpatient (IN) | payer OTHER ==
[2019-01-07] MEDS ORDERED: PHENYLEPHRINE HCL 50 MG in NS 250 ML IV ONE ×2 (06:00→14:15)
[2019-01-07] MEDS ORDERED: MUPIROCIN 2% 22 GM OINT NS ONE (06:00)
[2019-01-07] MEDS ORDERED: INSULIN REGULAR HUMAN 100 UNIT in NS 100 ML IV ONE (06:00)
[2019-01-07] MEDS ORDERED: EPINEPHrine 8 MG in NS 250 ML IV ONE (06:00)
[2019-01-07] MEDS ORDERED: NOREPINEPHRINE BITARTRATE 16 MG in NS 250 ML IV ONE (06:00)
[2019-01-07] MEDS ORDERED: CARDIOPLEGIC SOLUTION 1,052.8 ML PF ONE (06:00)
[2019-01-07] MEDS ORDERED: MANNITOL 25% 12.5 GM/50 ML VIAL IVP ONE (06:00)
[2019-01-07] MEDS ORDERED: CITRATE DEXTROSE SOLN 500 ML BAG MISC ONE (06:00)
[2019-01-07] MEDS ORDERED: AMINOCAPROIC ACID 5 GM/20 ML VIAL IV ONE (06:00)
[2019-01-07] MEDS ORDERED: niCARdipine/NACL 200 ML IV ONE (06:00)
[2019-01-07] MEDS ORDERED: VERAPAMIL 5 MG, NITROGLYCERIN 2.5 MG, HEPARIN 500 UNIT, SODIUM BICARBONATE 0.2 MEQ in L... MISC ONE (06:00)
[2019-01-07] MEDS ORDERED: ceFAZolin 2 GM/DEXTROSE 100 ML IV ONE (06:00)
[2019-01-07 06:19] VITALS: BP 142/70
[2019-01-07] MEDS ORDERED: PROTAMINE SULFATE 50 MG/5 ML VIAL IVP ONE (06:22)
[2019-01-07] MEDS ORDERED: MILRINONE/DEXTROSE/100 ML BAG IV ONE (06:23)
[2019-01-07] MEDS ORDERED: HEPARIN 10,000 UNIT/10 ML MDV (1,000 UNIT/ML) ONE ×3 (06:23→16:39)
[2019-01-07] MEDS ORDERED: AMINOCAPROIC ACID 5 GM/20 ML VIAL ONE ×2 (06:23→06:25)
[2019-01-07] MEDS ORDERED: niCARdipine/NACL/200 ML BAG IV ONE (06:23)
[2019-01-07] MEDS ORDERED: NA BICARBONATE 50 MEQ/50 ML VIAL ONE ×4 (06:23→14:55)
[2019-01-07] MEDS ORDERED: DOPamine/DEXTROSE 400 MG/250 ML BAG IV ONE (06:23)
[2019-01-07] MEDS ORDERED: CALCIUM CHLORIDE 1 GM/10 ML INJ ONE ×3 (06:23→14:48)
[2019-01-07] MEDS ORDERED: SODIUM BICARBONATE 50 MEQ/50 ML SYR ONE (06:24)
[2019-01-07] MEDS ORDERED: NITROGLYCERIN/D5W 50 MG/250 ML BOTTLE IV ONE (06:24)
[2019-01-07] MEDS ORDERED: AMIODARONE HCL 150 MG/3 ML VIAL ONE ×2 (06:24→06:25)
[2019-01-07] MEDS ORDERED: ceFAZolin 1 GM VIAL ONE (06:24)
[2019-01-07] MEDS ORDERED: ADENOSINE 6 MG/2 ML VIAL ONE (06:24)
[2019-01-07] MEDS ORDERED: ALBUMIN 5% 250 ML BOTTLE IV ONE (06:24)
[2019-01-07] MEDS ORDERED: MAGNESIUM SULFATE 1 GM/2 ML VIAL ONE (06:25)
[2019-01-07] MEDS ORDERED: CITRATE DEXTROSE SOLN 500 ML BAG ONE (06:25)
[2019-01-07] MEDS ORDERED: LIDOCAINE 2% 100 MG/5 ML SYR ONE (06:25)
[2019-01-07] MEDS ORDERED: methylPREDNISolone SOD SUCC 1 GM/8 ML VIAL ONE (06:26)
[2019-01-07] MEDS ORDERED: PROPOFOL 200 MG/20 ML VIAL ONE (06:43)
[2019-01-07] MEDS ORDERED: MIDAZOLAM 2 MG/2 ML VIAL ONE ×2 (06:43→07:06)
[2019-01-07] MEDS ORDERED: fentaNYL 250 MCG/5 ML INJ ONE ×2 (06:43)
[2019-01-07] MEDS ORDERED: LIDOCAINE 2% 5 ML SDV ONE (06:44)
[2019-01-07] MEDS ORDERED: ROCURONIUM 100 MG/10 ML VIAL ONE (06:44)
[2019-01-07] MEDS ORDERED: PHENYLEPHRINE 10 MG/ML SDV ONE ×2 (06:50→09:44)
--- NOTE | 2019-01-07 06:51 | PDHPUP ---
History & Physical Update H&P update statement: This history and physical update is based on an assessment of the patient which was completed after admission or registration (within 24 hours), but prior to the surgery/procedure. H&P update: H&P reviewed & patient examined, changes noted (+LUIS used for past CABG)
[2019-01-07] MEDS ORDERED: EPINEPHrine 1 MG/ML INJ ONE (06:52)
[2019-01-07] MEDS ORDERED: MINERAL OIL 10 ML VIAL ONE (07:01)
[2019-01-07] MEDS ORDERED: VERAPAMIL 5 MG/2 ML VIAL ONE (07:02)
[2019-01-07] MEDS ORDERED: PAPAVERINE HCL 60 MG/2 ML SDV ONE (07:02)
[2019-01-07] MEDS ORDERED: LR 1,000 ML IV ONE (07:04)
[2019-01-07] MEDS ORDERED: MIDAZOLAM 2 MG/2 ML VIAL IVP ONE (07:05)
--- NOTE | 2019-01-07 07:06 | PDANEPAE ---
ANE History of Present Illness avr,mvr,cab ANE Past Medical History - Cardiovascular History Hx Hypertension: Yes Hx Arrhythmias: No Hx Chest Pain: No Hx Coronary Artery / Peripheral Vascular Disease: Yes Hx CHF / Valvular Disease: Yes Hx Palpitations: No Cardiovascular History Comment: s/p 4 v CABG 20 yrs ago, stent 18 yr ago - Pulmonary History Hx COPD: No Hx Asthma/Reactive Airway Disease: No Hx Recent Upper Respiratory Infection: No Hx Oxygen in Use at Home: No Hx Sleep Apnea: No Sleep Apnea Screening Result - Last Documented: Positive Pulmonary History Comment: SATNAM triggers only - Neurologic History Hx Cerebrovascular Accident: No Hx Seizures: No Hx Dementia: No - Endocrine History Hx Diabetes: No Hypothyroid: No Hyperthyroid: No Obesity: no - Renal History Hx Renal Disorders: Yes Renal History Comment: [id number] - Liver History Hx Hepatic Disorders: No - Neurological & Psychiatric Hx Hx Neurological and Psychiatric Disorders: No - Cancer History Hx Cancer: No - Congenital Disorder History Hx Congenital Disorders: No - GI History GERD: mild Hx Gastrointestinal Disorders: Yes Gastrointestinal History Comment: HIATAL HERNIA. INTERMITTENT GERD. HX OF COLON POLYP - Other Health History Other Health History: bilateral hearing aids. upper denture, lower partial. bialteral rotator cuff pain - Chronic Pain History Chronic Pain: Yes (bilateral rotator cuffs) - Surgical History Prior Surgeries: RT TOTAL KNEE 05/2015. CABGX4 1998. 2 stents, 2000 ANE Review of Systems Review of Systems: - Exercise capacity Exercise capacity: >=4 METS METS (RN): 4 METS ANE Patient History - Allergies Allergies/Adverse Reactions: Penicillins Allergy (Verified 01/07/19 06:04) Sulfa (Sulfonamide Antibiotics) Allergy (Verified 01/07/19 06:04) can't recall reaction but thinks it was itching - Home Medications Home medications: home medication list seen and reviewed Home Medications: Aspirin [Aspirin 81mg (*)] 81 mg PO DAILY 12/17/18 [Last Taken 01/06/19] Herbals/Supplements -Info Only 1 ea PO DAILY 12/17/18 [Last Taken 01/06/19] Lisinopril [Zestril 20 mg (*)] 20 mg PO BID 12/17/18 [Last Taken 01/06/19] - NPO status NPO Status: no food or drink >8 hours NPO Since - Liquids (Date): 01/06/19 NPO Since - Liquids (Time): 22:00 NPO Since - Solids (Date): 01/06/19 NPO Since - Solids (Time): 19:00 - Anes Hx Anes Hx: no prior problems - Smoking Hx Smoking Status: Former smoker - Family Anes Hx Family Hx Anesthesia Complications: none ANE Labs/Vital Signs - Vital Signs Blood Pressure: 142/70 Heart Rate: 90 Respiratory Rate: 16 O2 Sat (%): 96 Height: 180.34 cm Weight: 72.575 kg ANE Physical Exam - Airway Mallampati Score: Class 2 Mouth exam: dentures - Pulmonary Pulmonary: no respiratory distress - Cardiovascular Cardiovascular: regular rate and rhythym - ASA Status ASA Status: III ANE Anesthesia Plan Anesthesia Plan: general endotracheal anesthesia Lines/Monitors: arterial line, central line, PRAVEENA
[2019-01-07] MEDS ORDERED: SUCCINYLCHOLINE CHLORIDE 200 MG/10 ML SYR IVP ONE (07:35)
[2019-01-07] MEDS ORDERED: D50W 25 GM/50 ML VIAL ONE ×2 (13:05→15:24)
[2019-01-07] MEDS ORDERED: NS IV SCH ×2 (14:30→15:00)
[2019-01-07] MEDS ORDERED: CALCIUM CHLORIDE IV SCH ×2 (14:30→15:00)
[2019-01-07] MEDS ORDERED: METHYLENE BLUE 0.5% 50 MG/10 ML AMP ONE (14:59)
[2019-01-07] MEDS ORDERED: ROCURONIUM 50 MG/5 ML VIAL ONE ×3 (15:00→17:19)
[2019-01-07] MEDS ORDERED: HYDROCORTISONE 100 MG/2 ML VIAL ONE (15:56)
--- NOTE | 2019-01-07 21:11 | GOP ---
[f rep st] OPERATIVE REPORT DATE OF OPERATION: 01/07/2019 SURGEON: Homar Blackwood DO PREOPERATIVE DIAGNOSIS: 1. 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 2. Moderate aortic insufficiency, moderate aortic stenosis. 3. Severe mitral insufficiency. 4. Arteriosclerotic heart disease. POSTOPERATIVE DIAGNOSIS: 1. 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 2. Moderate aortic insufficiency, moderate aortic stenosis. 3. Severe mitral insufficiency. 4. Arteriosclerotic heart disease. PROCEDURE PERFORMED: 1. Reoperation aortic valve replacement with a #23 Magna bioprosthesis. 2. Mitral valve replacement with a #31 magna bioprosthesis. 3. Saphenous vein graft to the ramus branch. 4. Saphenous vein graft to the distal left anterior descending. 5. Right common femoral artery intra-aortic balloon pump. 6. Right common femoral artery cannulation with primary repair. 7. Attempted venous arterial extracorporeal membrane oxygenation, unsuccessful. FINDINGS: DESCRIPTION OF PROCEDURE: This gentleman presented with class 3-4 angina pectoris and congestive heart failure with PND, orthopnea, and extreme fatigue. Preoperative echoes revealed dilated LV with an ejection fraction of 30% to 35 %, severe mitral insufficiency felt to be due to annular dilatation and LV dilation as well as ischemic in nature. He is also noted to have diffuse coronary artery disease with a patent left internal mammary artery to a poor quality LAD with lesions beyond the anastomosis and a large ramus branch with high-grade proximal lesion. He had a patent left internal mammary to the proximal LAD again which was a small diffuse vessel and a patent right internal mammary artery to the distal right prior to the bifurcation which again filled a very small vessel. He was consented for high-risk surgery, brought to the operating room, intubated monitoring lines were placed. He then became somewhat hemodynamically unstable requiring intermittent boluses of epinephrine to maintain his pressure prior to sternotomy. From the lateral chest x-ray, there appeared to be an adequate space and the presumption was that the pericardium had been closed, although we planned otherwise. Right common femoral artery was exposed in case we had problems. It had significant posterior plaquing, but it was otherwise a good quality vessel. We then performed a sternotomy with the wires in and the bone, removing the sternal wires without difficulty. While dissecting out the right side initially , there was a knuckle of previously placed but occluded vein graft which was adherent to the back of the sternum and that was entered but controlled with a single Prolene suture. We then marsupialized the heart with difficulty. It took several hours identifying and preserving both mammaries. Most of this was done without bypass. We then went on bypass and spent some time dissecting out the remainder of the heart laterally, preserving both mammaries and isolating them so that we could occlude them while administering cardioplegia. We then arrested the heart.with antegrade, retrograde solution, topical slush and cooling to 32 degrees. Cardioplegia was administered per Delnido protocol, with additional continuous infusion down the vein graft to the ramus when completed. The vein graft had been harvested endoscopically from the left leg by Kwaku Fry PA-C. It was excellent quality vein. We arrested the heart, completed the dissection after placing bulldogs on both mammary arteries. We then grafted a 2.4 mm ramus branch, tunneled beneath the previous left internal mammary artery over the top of the pulmonary artery and anastomosed end-to-side to the ascending aorta. The anastomosis was not completed until the end of the procedure, however. We then hooked that up to cardioplegia in order to also administer cardioplegia. It should be noted that because of his aortic insufficiency we were able to still get some antegrade cardioplegia as well as retrograde cardioplegia, although the coronary sinus was extremely small and tight. We also gave almost continuous cardioplegia down the vein graft using Del Nido solution but giving it much more frequently as well as cooling the patient to 32 degrees and using topical hypothermia. I was concerned about adequate myocardial protection given the fact that major areas of his heart were totally dependent upon arterial flow from mammary arteries. We maintained cardiac arrest giving intermittent cardioplegia whenever we could every 15-20 minutes, as well as replenishing ice on top of the heart. No cardiac activity was noted. We then exposed the mitral valve through the interatrial septum after putting caval tapes around the superior and inferior vena cava. I did this because he had a very deep chest and extremely large heart with a large left atrium. I had excellent exposure. The posterior anulus was markedly dilated. The anulus was somewhat calcified and had bileaflet prolapse. Given his age and the difficulty of dissection, we decided to replace it with a 31 mm Magna valve with chordal sparing 2-0 Tycron pledgeted mattress sutures in order to facilitate cross-clamp time rather than repairing it and run the risk of failed repair. I also thought there was some component of secondary mitral valve insufficiency due to chronic ischemia, aortic insufficiency and global myopathy. The interatrial septum and the left atrium and the dome were closed with continuous running 4-0 Prolene suture as was the right atrium. We then exposed the aortic valve. It was not terribly stenotic, but had at least moderate aortic insufficiency on echo and when the heart was empty, it was ejecting significant amount. For that reason, I excised the leaflets and placed a 23 mm Magna bioprosthesis in the supra- annular position utilizing core knots. Aortotomy was closed in a two-layer fashion. We then completed the proximal anastomosis of the vein graft to the ramus off the ascending aorta. The cross-clamp was then removed. We attempted to control bleeding as much as we could with Bovie dissection rather than sharp dissection. Again, the heart was 2-1/2 times normal size extremely difficult to retract laterally, but no bleeding was seen back there other than punctate epicardial bleeding from dissection prior to removing the cross-clamp. We then spent some time trying to wean him from bypass, and he initially would look fairly well although he had global LV dysfunction initially. Inotropes were begun. Failure to wean resulted in placing a balloon pump through the right common femoral artery requiring a floppy wire and an exchange catheter in order to safely place it into the descending thoracic aorta. It should be noted that we initially had cannulated the right common femoral artery when we injured that old vein graft and there was bleeding in order to give back shed blood. He was heparinized prior to that, and he remained hemodynamically stable despite that while we dissected out the heart. We initially attempted to place a balloon pump on the left. However, we were unable to get the wire to go up to the descending thoracic aorta and while waiting for fluoro, I switched the cannula to the ascending aorta, repaired the right common femoral artery and over an exchange wire utilizing a floppy wire was able to place a wire into the descending thoracic aorta and safely deploy the balloon pump with echo guidance. Despite that he still was unable to wean from bypass. We then rested him for some time on pump, administering inotropes. I then grafted the distal LAD which was a diffusely diseased poor quality vessel, bringing the proximal off the previous ramus graft. This was done with empty beating heart using a stabilizer. He was rather refractory to pressors in order to maintain mean pressure higher than 40 despite maximum medical therapy. I was concerned about acidosis. I then decided to convert him to an LVAD because his RV seem to only fail after his left ventricle failed. We were unable to get adequate flows and he began to have copious bloody secretions from the ET tube. I then switched it to a VA ECMO and again despite that, the left ventricle continued to fail with the right ventricular ventricle following and after multiple hours and extremely long time on bypass, it became evident that he was becoming more and more acidotic and coagulopathy was rather profound at that point. We then allowed him to in the operating room. The cannulas were removed. The sternum was reapproximated, and the skin was closed. CONDITION: Patient in the operating room. /[id number]/MODL MTDD
== END 2019-01-07 17:50 | disposition expired | DRG 2 ==
LOC: F3N 05:31 → F2N 05:31 → FSGY 05:31 → UNDOADMIN 05:31 → EDSTATUS 07:15 → F3N 11:09 → F2N 11:09 → UNDODISIN 17:50 → FSGY 17:50
PROVIDERS: ADMIT Thoracic Surgery (Cardiothoracic Vascular Surgery); ATTEND Thoracic Surgery (Cardiothoracic Vascular Surgery)
DX: I35.2 Nonrheumatic aortic (valve) stenosis with insufficiency (principal); I34.0 Nonrheumatic mitral (valve) insufficiency; I36.1 Nonrheumatic tricuspid (valve) insufficiency; I25.119 Atherosclerotic heart disease of native coronary artery with unspecified angina pectoris; I25.5 Ischemic cardiomyopathy; I42.0 Dilated cardiomyopathy; I50.42 Chronic combined systolic (congestive) and diastolic (congestive) heart failure; Z95.1 Presence of aortocoronary bypass graft; Z95.5 Presence of coronary angioplasty implant and graft; I97.130 Postprocedural heart failure following cardiac surgery; I50.1 Left ventricular failure, unspecified; D68.32 Hemorrhagic disorder due to extrinsic circulating anticoagulants; E87.2 Acidosis; I10 Essential (primary) hypertension; K21.9 Gastro-esophageal reflux disease without esophagitis; K44.9 Diaphragmatic hernia without obstruction or gangrene; E78.5 Hyperlipidemia, unspecified; Z96.651 Presence of right artificial knee joint; Z87.891 Personal history of nicotine dependence
CPT/HCPCS: C1768; J0153; J0171; J0282; J0330; J0690; J1265; J1644; J1720; J1815; J2001; J2150; J2250; J2260; J2370; J2440; J2704; J2720; J2930; J3010; J3475; P9012; P9016; P9017; P9035; P9041; P9100; Q9968